=== PATIENT | female | born 1975 | race Caucasian/White ===

== ENCOUNTER 2017-04-16 10:05 | Inpatient (IN) | payer OTHER ==
[2017-04-16] MEDS ORDERED: OLANZapine DISINTEGR 10 MG TAB PO ONE (10:37)
--- NOTE | 2017-04-16 10:41 | EDPHY ---
H & P Stated Complaint: hallucinations, confusion, from [place], wants zyprexia and adderoll - Personal History LMP (Females 10-55): Now Current Tetanus/Diphtheria Vaccine: Yes Current Tetanus Diphtheria and Acellular Pertussis (TDAP): Yes - Medical/Surgical History Hx Asthma: No Hx Chronic Respiratory Disease: No Hx Diabetes: No Hx Cardiac Disease: No Hx Renal Disease: No Hx Cirrhosis: No Hx Alcoholism: No Hx HIV/AIDS: No Hx Splenectomy or Spleen Trauma: No Other PMH: pmh: bipolar, schizoaff, high chol,. psh: varicose veins, dental - Social History Smoking Status: Never smoked Time Seen by Provider: 04/16/17 10:23 HPI/ROS: CHIEF COMPLAINT: "I just got back from [facility]" HISTORY OF PRESENT ILLNESS: 41-year-old female drove to the emergency department stating that she recently returned from [facility] and is requesting refill of Zyprexa and Adderall. She has rapid, tangential, flight of ideas when I speak with her, mentions says that she is a self-described Saint necessitate, has been traveling between [place], [place], [place] and arrived in [place] today because she has been feeling possessed recently spent a trip in [facility]. She explicitly denies suicidal or homicidal ideations. States she has previously been on Adderall and Zyprexa but states that these were not for psychiatric reasons. She denies history of hospitalizations for psychiatric care or chronic psychiatric care. She has no complaints of pain or discomfort. She denies illicit drug or alcohol use. Denies methamphetamine use. Denies trauma. Denies head injury. REVIEW OF SYSTEMS: A ten point review of systems was performed and is negative with the exception of the items mentioned in the HPI PAST MEDICAL & SURGICAL HISTORY: patient denies diagnosed psychiatric history SOCIAL HISTORY: denies illicit drug use PHYSICAL EXAM (Prior to examination, patient consented to physical exam, hands were washed and my usual and customary physical exam procedures followed) 1) GENERAL: Well-developed, well-nourished, alert and oriented. 2) HEAD: Normocephalic, atraumatic 3) HEENT: Pupils equal, round, reactive to light bilaterally. Sclera anicteric. 4) NECK: Full range of motion, no meningeal signs. 5) LUNGS: Clear auscultation bilaterally, no wheezes, no rhonchi, no retractions. 6) HEART: Regular rate and rhythm, no murmur, no heave, no gallop. 7) ABDOMEN: No guarding, no rebound, no focal tenderness, 8) MUSCULOSKELETAL: No peripheral edema or discoloration. 9) BACK: no obvious trauma, no visual or palpable abnormality. 10) SKIN: No rash, no petechiae. 11) Psychiatric: Patient is oriented X 3, she appears agitated, she has rapid speech pattern, flight of ideas, tangential thoughts. DIFFERENTIAL DIAGNOSIS: in no particular include but limited to lina, psychosis , depression (Rebecca Ward) Constitutional: Initial Vital Signs Temperature (C) 36.5 C 04/16/17 10:15 Heart Rate 111 H 04/16/17 10:15 Respiratory Rate 16 04/16/17 10:15 Blood Pressure 127/88 H 04/16/17 10:15 O2 Sat (%) 98 04/16/17 10:15 O2 Delivery Mode Room Air Allergies/Adverse Reactions: No Known Allergies Allergy (Unverified 04/16/17 10:14) Home Medications: Medication Instructions Recorded Unobtainable 04/16/17 Medical Decision Making ED Course/Re-evaluation: 10:30 a.m.: In consultation with secondary supervising physician Dr Ornelas the patient was placed on M1 hold as I believe her to be gravely disabled, acutely psychotic 5:00 p.m.: Care turned over to Dr. Anthony, awaiting evaluation (Rebecca Ward Magdalene) - Data Points Laboratory Results: Laboratory Results 04/16/17 11:05 04/16/17 11:05 Medications Given: Lorazepam (Ativan) 0.5 - 1 mg PO Q4HRS PRN PRN Reason: Anxiety, Able to Take PO Stop: 10/13/17 22:39 Last Admin: 04/17/17 07:44 Dose: 1 mg Olanzapine (Olanzapine) 5 mg PO Q4 PRN PRN Reason: PSYCHOSIS Stop: 10/13/17 22:40 Last Admin: 04/17/17 06:07 Dose: 5 mg Discontinued Medications Olanzapine (Zyprexa Zydis) 10 mg PO EDNOW ONE Stop: 04/16/17 10:38 Last Admin: 04/16/17 11:01 Dose: 10 mg Departure - Departure Disposition: Other Psych, Not [place] Clinical Impression: Acute psychosis Condition: Fair
[2017-04-16 11:15] LABS: % IMMATURE GRANULYOCYTES 0.2 % (0.0-1.1); ABSOLUTE IMMATURE GRANULOCYTES 0.01 10^3/uL (0.00-0.10); ADD DIFF? NO; ADD MORPH? NO; ADD SCAN? NO; ATYPICAL LYMPHOCYTE FLAG 10 (0-99); FRAGMENT RBC FLAG 0 (0-99); HEMATOCRIT 44.4 % (38.0-47.0); HEMOGLOBIN 15.7 g/dL (12.6-16.3); LEFT SHIFT FLG 0 (0-99); LIPEMIA HEMOLYSIS FLAG 90 (0-99); MEAN CELL HEMOGLOBIN 33.2 pg (27.9-34.1); MEAN CELL HEMOGLOBIN CONCENTR. 35.4 g/dL (32.4-36.7); MEAN CELL VOLUME 93.9 fL (81.5-99.8); MEAN PLATELET VOLUME 9.8 fL (8.7-11.7); PLATELET CLUMPS FLAG 0 (0-99); PLATELET COUNT 251 10^3/uL (150-400); RED BLOOD CELL COUNT 4.73 10^6/uL (4.18-5.33); RED CELL DISTRIBUTION WIDTH 11.9 % (11.5-15.2)
[2017-04-16 11:36] LABS: ANION GAP 9 mEq/L (8-16); CALCIUM 10.2 mg/dL (8.5-10.4); CARBON DIOXIDE 25 mEq/l (22-31); CHLORIDE 104 mEq/L (97-110); CREATININE 0.8 mg/dL (0.6-1.0); ETHANOL SERUM < 10 mg/dL (0-10); GLOMERULAR FILTRATION RATE > 60; GLUCOSE 102 mg/dL (70-100); POTASSIUM 4.5 mEq/L (3.5-5.2); SALICYLATE < 1.0 mg/dL (2.0-20.0); SODIUM 138 mEq/L (134-144)
[2017-04-16] MEDS ORDERED: MAG HYDROX/AL HYDROX/SIMETH 30 ML UDCUP PO PRN (22:40)
[2017-04-16] MEDS ORDERED: OLANZapine 5 MG TAB PO PRN (22:41)
[2017-04-17] MEDS: LORazepam 0.5 MG TAB PO PRN (07:44)
[2017-04-17] MEDS: NICOTINE POLACRILEX 2 MG GUM B PRN ×3 (08:33→16:00)
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
[2017-04-17] MEDS ORDERED: SENNOSIDES 1 TAB PO PRN (15:22)
[2017-04-17] MEDS: OLANZapine 2.5 MG TAB PO SCH (19:30)
--- NOTE | 2017-04-18 02:25 | BCON ---
[f rep st] BEHAVIORAL HEALTH CONSULTATION INTERNAL MEDICINE CONSULTATION DATE OF CONSULTATION: 04/16/2017 REFERRING PHYSICIAN: Dr. Noland REASON FOR REFERRAL: Medical clearance for inpatient behavioral health stay. HISTORY OF PRESENT ILLNESS: This patient came to the [facility] emergency department y esterday asking for Zyprexa and Adderall. She reported that she had been driving from [place] to [facility], but that she had been driving for 2 weeks. She also said that she had been "[facility] She was found to be disorganized and possibly psychotic in the emergency department. She was dread luated by the mental health team and admitted for further psychiatric care. Currently, she complains of leg swelling, more so in the right foot than the left foot. She also say s she has had some muscle cramping in the right thigh. She also reports that she has constipation fo r several days. She says she thinks she had a bowel movement in the emergency department, but is carroll ewhat vague as to whether she did or not. She also reports self-manual disimpaction. PAST MEDICAL HISTORY: 1. Mental health issues. 2. History of bulimia. 3. Ventral hernia. 4. She has given to 2 children. She otherwise denies any history of medical or surgical illnesses. MEDICATIONS: She reports that she was prescribed olanzapine and Adderall, though she did not have th tor medications with her when she presented at the emergency department. ALLERGIES: There are no known drug allergies. SOCIAL HISTORY: She is from [place]. She apparently is estranged from her . She reports dar t she has family in [place] and was traveling. She is a nonsmoker. FAMILY HISTORY: Noncontributory. PHYSICAL EXAMINATION: VITAL SIGNS: Blood pressure is 105/70, heart rate is 82, respiratory rate is 16, oxygen saturation is 96% on room air, temperature is 36.3 degrees centigrade. Her weight is 63.5 kg for a body mass index of 21.9. GENERAL: This is a well-nourished, well-developed woman, who loo ks sleepy, dressed in street clothes, cooperative, and in no acute distress. HEENT: Extraocular mov ements are intact. Pupils are equal, round, and reactive to light. Mucous membranes are moist. Den tition is in good condition. There is an uncrowded airway, Mallampati class 1. NECK: Supple. HEAR T: Regular rate and rhythm with no murmurs, rubs, or gallops. LUNGS: Clear to auscultation bilater ally. ABDOMEN: Soft, nontender, nondistended with normoactive bowel sounds. There is a palpable mi dline defect approximately 5 cm superior to the umbilicus. EXTREMITIES: There is no cyanosis or clu bbing. She has 1 to 2+ edema bilaterally in the lower extremities, greater on the right than the lef t. There is no calf tenderness. NEUROLOGIC: She is alert. Orientation was not checked. Cranial n erves 2-12 are grossly intact, though she has difficulty keeping her eyes open with bilateral ptosis. There is no focal weakness. Sensation is intact to light touch. Gait is within normal limits. LABORATORY DATA: Laboratory studies were drawn in the emergency department. CBC was completely with in normal limits. Serum chemistry revealed normal renal function and electrolytes. Glucose was slig htly elevated at 102, but this was likely not fasting. Beta-hCG was negative for . Toxicol ogy screen in the serum was negative for salicylates, acetaminophen, or ethyl alcohol, and in the uri ne was negative for substances of abuse. ASSESSMENT AND RECOMMENDATIONS: 1. Mental health issues pending further evaluation and management per Psychiatry and the mental [facility] team. 2. Edema and prolonged driving. Will check a D-dimer, though she seems to be low probability for de ep venous thrombosis. If D-dimer is negative, there is no indication for further evaluation. 3. Constipation. Will prescribe senna. Milk of magnesia has been prescribed, but she reports that this just causes her more bloating. I see no medical contraindications to this patient's continued stay in the inpatient [facility] unit or to any psychiatric medications or procedures. Thank you very much for including me in the care of this patient, and please do not hesitate to conta ct me or the hospitalist service should there be need for further medical evaluation. /[id number]/MODL
[2017-04-18] MEDS: ACETAMINOPHEN 325 MG TAB PO PRN ×2 (03:13→09:41)
[2017-04-18] MEDS: MAGNESIUM HYDROXIDE 30 ML UDCUP PO PRN (03:27)
[2017-04-18] MEDS: NICOTINE POLACRILEX 2 MG GUM B PRN ×4 (07:33→18:23)
[2017-04-18] MEDS ORDERED: HYDROCHLOROTHIAZIDE 25 MG TAB PO ONE ×2 (10:38→15:00)
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
[2017-04-18] MEDS: LORazepam 0.5 MG TAB PO PRN (20:26)
[2017-04-18] MEDS: OLANZapine 2.5 MG TAB PO SCH (20:26)
[2017-04-19] MEDS: NICOTINE POLACRILEX 2 MG GUM B PRN ×3 (08:27→13:40)
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
[2017-04-19] MEDS: OLANZapine 2.5 MG TAB PO SCH (20:35)
[2017-04-19] MEDS: MAGNESIUM HYDROXIDE 30 ML UDCUP PO PRN (20:35)
[2017-04-20] MEDS: NICOTINE POLACRILEX 2 MG GUM B PRN ×5 (07:14→14:37)
--- NOTE | 2017-04-20 12:14 | SOAPPROG ---
SOAP Progress Note Assessment/Plan: Assessment: Plan: 04/18/17 15:33 Remains disorganized, manic, psychotic. Will CCM. Await callback from pt's primary psychiatrist. 04/19/17 17:20 Remains psychotic. Willing to start Prolixin. Will start at 5mg, monitor. 04/20/17 12:14 Schizophrenia: remains acute psychotic but compliant with treatment. CCM. Subjective: Pt seen, discussed with staff. Reports feeling "fine." Out in milieu, but guarded, appears anxious, scans room. Compliant with meds including Prolixin. Objective: Vital Signs Temp Pulse Resp BP Pulse Ox 36.6 C 58 L 16 117/78 96 04/20/17 06:00 04/20/17 06:00 04/20/17 06:00 04/20/17 06:00 04/20/17 06:00 MSE: Cooperative, though guarded. Affect is constricted, stable. Mood is "fine." TP generally linear. TC reveals continued paranoia, IOR's, likely AH's. - Time Spent With Patient Time Spent With Patient: 15" ICD10 Worksheet Patient Problems: Problems Problem Status Onset Acute psychosis Acute
[2017-04-20] MEDS: OLANZapine 2.5 MG TAB PO SCH (19:32)
[2017-04-20] MEDS: LORazepam 0.5 MG TAB PO PRN (20:42)
[2017-04-21] MEDS: NICOTINE POLACRILEX 2 MG GUM B PRN ×5 (07:21→15:59)
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
[2017-04-21] MEDS: LORazepam 0.5 MG TAB PO PRN (20:45)
[2017-04-22] MEDS: MAGNESIUM HYDROXIDE 30 ML UDCUP PO PRN (13:30)
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
[2017-04-22] MEDS: NICOTINE POLACRILEX 2 MG GUM B PRN (15:17)
[2017-04-22] MEDS: LORazepam 0.5 MG TAB PO PRN (20:42)
[2017-04-23 06:42] VITALS: RESP 14
[2017-04-23] MEDS: NICOTINE POLACRILEX 2 MG GUM B PRN (11:36)
[2017-04-23] MEDS: LORazepam 0.5 MG TAB PO PRN (18:50)
[2017-04-24] MEDS: NICOTINE POLACRILEX 2 MG GUM B PRN ×3 (10:45→18:58)
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
--- NOTE | 2017-04-24 13:57 | SOAPPROG ---
SOAP Progress Note Assessment/Plan: Assessment: Plan: 04/18/17 15:33 Remains disorganized, manic, psychotic. Will CCM. Await callback from pt's primary psychiatrist. 04/19/17 17:20 Remains psychotic. Willing to start Prolixin. Will start at 5mg, monitor. 04/20/17 12:14 Schizophrenia: remains acute psychotic but compliant with treatment. [facility]. 04/24/17 13:51 Improving. Will continue on Prolixin alone. Continue d/c planning. 04/24/17 13:58 Doing well. CCM. Likely d/c tomorrow if all is well. Subjective: Pt seen, discussed with staff. Reports feeling "really good" today. No further inappropriate behaviors. She remains compliant with Prolixin. Outlines detailed plan to take the bus to [facility] to get her car, get gas, buy Diet Coke at [employer] while getting her prescriptions filled and then walk around on [address] [employer] to buy a souvenir before driving to [place]. Objective: Vital Signs Temp Pulse Resp BP Pulse Ox 36.6 C 84 14 114/73 96 04/23/17 06:00 04/23/17 06:00 04/23/17 06:00 04/23/17 06:00 04/23/17 06:00 MSE: Calm, coop. Affect is euthymic, stable, approp. Mood is "good." TP linear. TC reveals no mention of delusions. Denies AH's. - Time Spent With Patient Time Spent With Patient: 25" ICD10 Worksheet Patient Problems: Problems Problem Status Onset Acute psychosis Acute
[2017-04-24] MEDS: LORazepam 0.5 MG TAB PO PRN (20:40)
[2017-04-25] MEDS: ACETAMINOPHEN 325 MG TAB PO PRN (03:51)
[2017-04-25 06:19] VITALS: BP 102/76; PULSE 63; TEMP 97.5; O2SAT 94
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
== END 2017-04-25 09:48 | disposition home or self-care (01) | DRG 885 ==
LOC: BBEH 21:45
PROVIDERS: ADMIT Psychiatry & Neurology Psychiatry; ATTEND Psychiatry & Neurology Psychiatry
DX: F30.2 Manic episode, severe with psychotic symptoms (principal); F15.90 Other stimulant use, unspecified, uncomplicated
CPT/HCPCS: 80305; G0480